=== PATIENT | male | born 1985 | race Caucasian/White ===

== ENCOUNTER 2018-01-02 18:07 | Emergency (ER) | payer OTHER, SELFPAY ==
[2018-01-02] MEDS ORDERED: Ketorolac Tromethamine 60 MG/2 ML VIAL ONE (18:33)
--- NOTE | 2018-01-02 20:18 | RAD ---
TWO VIEWS CHEST: 01/02/18 PROVIDED CLINICAL HISTORY: Back pain and mid sternal chest pain status post injury. FINDINGS: No comparisons. The cardiac silhouette appears enlarged. There is no focal air space disease, pleural fluid, or pneum othorax apparent. The bony thorax appears grossly intact. IMPRESSION: No evidence for an acute cardiopulmonary process. POS: [facility]
[2018-01-02] MEDS ORDERED: HYDROcodone/Acetaminophen 5/325 mg Tablet ONE (20:20)
== END 2018-01-02 20:28 | disposition home or self-care (01) ==
LOC: ERS 18:07
DX: S20.212A Contusion of left front wall of thorax, initial encounter (principal); B35.6 Tinea cruris; E66.9 Obesity, unspecified; V89.2XXA Person injured in unspecified motor-vehicle accident, traffic, initial encounter
CPT/HCPCS: 71046; 93005; 96372; J1885